=== PATIENT | female | born 1960 | race American Indian/Alaskan Native ===

== ENCOUNTER 2016-11-28 12:43 | Emergency (ER) | payer MEDICAID, OTHER ==
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
[2016-11-28 17:22] VITALS: BP 175/116
--- NOTE | 2016-11-29 14:42 | ED Elopement Review ---
ED Pt Elopement review - Call Back decision Pt Call Back Decision: No action required
== END 2016-11-28 18:18 | disposition left against medical advice (07) ==
LOC: ED 12:43
DX: M54.2 Cervicalgia (principal); R51 Headache; Z53.21 Procedure and treatment not carried out due to patient leaving prior to being seen by health care provider
CPT/HCPCS: 70450; 71020; 72125